=== PATIENT | female | born 1990 | race Two or more races ===

== ENCOUNTER → 2024-05-13 | Outpatient (CLI) | payer MEDICAID ==
[2024-05-13 10:14] LABS: Urine Bacteria None Seen /hpf (None Seen)
[2024-05-13 10:23] LABS: Basophils # (auto) 0 10 ^3/uL (0-0.2); Basophils % (auto) 0.3 % (0.0-2.0); Eosinophils # (auto) 0.2 10 ^3/uL (0-0.8); Eosinophils % (auto) 2.9 % (0.0-7.0); Hematocrit 37.2 % (36.0-46.0); Hemoglobin 13.1 g/dL (12.2-16.2); Lymphocytes # (auto) 1.6 10 ^3/uL (0.4-5.4); Mean Corpuscular Hemoglobin 31.8 pg (28.0-32.0); Mean Corpuscular Hgb Conc. 35.2 g/dL (32.0-36.0); Mean Corpuscular Volume 90.3 fL (80.0-100.0); Monocytes # (auto) 0.4 10 ^3/uL (0-1.3); Monocytes % (auto) 6.3 % (0.0-12.0); Neutrophils # (auto) 4.8 10 ^3/uL (1.6-8.6); Neutrophils % (auto) 67.5 % (37.0-80.0); Nucleated Red Blood Cells % 0.1 %; Platelet Count (auto) 314 10^3/uL (140-450); Red Blood Cells 4.12 10^6/uL (4.0-5.20); Red Cell Distribution Width 13.3 % (11.8-14.3); White Blood Cell 7.1 10^3/uL (4.4-10.8)
[2024-05-13 10:36] LABS: Urine Blood Negative /uL (Negative); Urine Clarity Clear (Clear); Urine Color Light-Yellow (Yellow); Urine Protein, UAD Negative (Negative); Urine Specific Gravity 1.015 (1.001-1.035); Urine Urobilinogen Normal (Negative); Urine WBC 2 /hpf (0 - 5)
[2024-05-13 11:12] LABS: Alanine Aminotransferase 27 U/L (7-40); Albumin 4.5 g/dL (3.2-4.8); Alkaline Phosphatase 80 U/L (46-116); Anion Gap 5 (5-15); Aspartate Aminotransferase 16 U/L (13-40); Calcium 9.7 mg/dL (8.7-10.4); Carbon Dioxide 26 mmol/L (20-31); Chloride 106 mmol/L (98-107); Cholesterol 188 mg/dL (< 200); Glucose 98 mg/dL (74-106); Potassium 4.5 mmol/L (3.5-5.1); Sodium 137 mmol/L (136-145)
[2024-05-13 11:13] LABS: Bilirubin, Total 0.4 mg/dL (0.2-1.0); Total Protein 7.7 g/dL (5.7-8.2)
[2024-05-13 11:23] LABS: Blood Urea Nitrogen 6 mg/dL (9-23); HDL Cholesterol 33 mg/dL (40-59); Triglycerides 532 mg/dL (< 150)
== END | disposition home or self-care (01) ==
LOC: LAB 09:59
PROVIDERS: ATTEND Nurse Practitioner Family
DX: Z00.01 Encounter for general adult medical examination with abnormal findings (principal); E78.5 Hyperlipidemia, unspecified; E55.9 Vitamin D deficiency, unspecified; R73.9 Hyperglycemia, unspecified
CPT/HCPCS: 36415; 80053; 80061; 81001; 82043; 82306; 83036; 84443; 85025

== ENCOUNTER → 2024-08-04 | Outpatient (CLI) | payer MEDICAID ==
[2024-08-04 10:07] LABS: Cholesterol 173 mg/dL (< 200)
[2024-08-04 10:28] LABS: HDL Cholesterol 29 mg/dL (40-59); Triglycerides 455 mg/dL (< 150)
== END | disposition home or self-care (01) ==
LOC: LAB 09:23
PROVIDERS: ATTEND Nurse Practitioner Family
DX: E78.5 Hyperlipidemia, unspecified (principal); R79.89 Other specified abnormal findings of blood chemistry
CPT/HCPCS: 36415; 80061; 82306

== ENCOUNTER 2024-10-06 08:10 | Day surgery (SDC) | payer MEDICAID ==
[2024-10-04 09:27] LABS: Basophils # (auto) 0 10 ^3/uL (0-0.2); Basophils % (auto) 0.2 % (0.0-2.0); Eosinophils # (auto) 0.2 10 ^3/uL (0-0.8); Eosinophils % (auto) 2.4 % (0.0-7.0); Hematocrit 36.3 % (36.0-46.0); Hemoglobin 12.5 g/dL (12.2-16.2); Lymphocytes # (auto) 1.5 10 ^3/uL (0.4-5.4); Lymphocytes % (auto) 22.1 % (10.0-50.0); Mean Corpuscular Hemoglobin 31.1 pg (28.0-32.0); Mean Corpuscular Hgb Conc. 34.6 g/dL (32.0-36.0); Mean Corpuscular Volume 90.1 fL (80.0-100.0); Monocytes # (auto) 0.5 10 ^3/uL (0-1.3); Monocytes % (auto) 6.7 % (0.0-12.0); Neutrophils # (auto) 4.8 10 ^3/uL (1.6-8.6); Neutrophils % (auto) 68.6 % (37.0-80.0); Nucleated Red Blood Cells % 0.2 %; Platelet Count (auto) 312 10^3/uL (140-450); Red Blood Cells 4.03 10^6/uL (4.0-5.20); Red Cell Distribution Width 13.8 % (11.8-14.3)
[2024-10-04 09:31] LABS: INR 0.97 (0.9-1.15); Partial Thromboplastin Time 25.4 SEC (24.5-34.5); Prothrombin Time 10.3 sec (9.3-11.8)
[2024-10-04 09:37] LABS: Alanine Aminotransferase 30 U/L (7-40); Albumin 4.7 g/dL (3.2-4.8); Alkaline Phosphatase 64 U/L (46-116); Anion Gap 8 (5-15); Aspartate Aminotransferase 23 U/L (13-40); BUN/Creatinine Ratio 16.4 (10.0-20.0); Bilirubin, Total 0.3 mg/dL (0.2-1.0); Blood Urea Nitrogen 11 mg/dL (9-23); Calcium 9.7 mg/dL (8.7-10.4); Carbon Dioxide 27 mmol/L (20-31); Chloride 106 mmol/L (98-107); Glucose 115 mg/dL (74-106); Potassium 3.8 mmol/L (3.5-5.1); Sodium 141 mmol/L (136-145)
[2024-10-04 10:06] LABS: Urine Bacteria FEW /hpf (None Seen); Urine Blood TRACE /uL (Negative); Urine Clarity Clear (Clear); Urine Color Light-Yellow (Yellow); Urine Mucus FEW (None Seen); Urine Protein, UAD Negative (Negative); Urine Specific Gravity 1.023 (1.001-1.035); Urine Squamous Epithelial Cell FEW /hpf (<5); Urine Urobilinogen Normal (Negative); Urine WBC 1 /HPF (0-5); Urine pH 5.5 (5.0-9.0)
[~2024-10-06] VITALS: Ht 154.9 cm; Wt 68.5 kg
[~2024-10-06 08:10] MED LIST: ATOR-507 PO; EZET10TA22 PO
[2024-10-06] MEDS ORDERED: ceFAZolin 2 GM/D5W50ml 50 ML IV ONE (08:29)
[2024-10-06] MEDS ORDERED: fentaNYL CITRATE 100 MCG/2 ML VL ONE (09:07)
[2024-10-06] MEDS ORDERED: MIDAZOLAM HCL 2MG/2ML 2ml VIAL (1mg/ml) ONE (09:07)
[2024-10-06] MEDS ORDERED: HYDROmorphone HCL 2 MG/ML VL/or syr ONE (09:07)
[2024-10-06] MEDS ORDERED: KETOROLAC TROMETH 30 MG/ML 1ML VIAL ONE (09:08)
[2024-10-06] MEDS ORDERED: ONDANSETRON HCL 4 MG/2 ML VIAL ONE (09:08)
[2024-10-06] MEDS ORDERED: GLYCOPYRROLATE 0.2 MG/ML 1ML VIAL ONE (09:08)
[2024-10-06] MEDS ORDERED: DexAMETHasone SOD PHOS 10MG/1ML VIAL INJ ONE (09:08)
[2024-10-06] MEDS ORDERED: LIDOCAINE 2% (LOCAL ANESTH.) PF 5ml SDV ONE (09:08)
[2024-10-06] MEDS ORDERED: ROCURONIUM 10MG/ML 10ML VIAL IV ONE (09:08)
[2024-10-06] MEDS ORDERED: PROPOFOL 10 MG/ML 20 ML IV ONE (09:08)
[2024-10-06] MEDS ORDERED: SUGAMMADEX 200mg/2ml Vial (100MG/ML) IV ONE (09:49)
[2024-10-06] MEDS: POVIDONE IODINE 10 % TOPICAL OINT 30GM TOP ONE (09:50)
[2024-10-06] MEDS: Lidocaine/Epinephrine 1%-1:100,000 30ML VL IJ ONE (09:50)
[2024-10-06 10:19] VITALS: TEMP 97.6; O2SAT 100
[2024-10-06] MEDS ORDERED: HYDROmorphone HCL 2 MG/ML VL/or syr IV PRN (10:30)
[2024-10-06] MEDS: ONDANSETRON HCL 4 MG/2 ML VIAL IV ONE (11:10)
--- NOTE | 2024-10-06 11:26 | DVHOP ---
DATE OF SURGERY: 10/06/2024 PREOPERATIVE DIAGNOSIS: Umbilical incisional hernia. POSTOPERATIVE DIAGNOSIS: Umbilical incisional hernia. SURGEON: Rodríguez Faith MD ANESTHESIA: General endotracheal. ANESTHESIOLOGIST: Dr. Siddiqui. PROCEDURE: Repair of umbilical hernia. DESCRIPTION OF PROCEDURE: Under general endotracheal anesthesia, with the patient's skin prepped and draped, the patient's skin was infiltrated with 0.5% Xylocaine and 0.25% Marcaine with epinephrine. An incision was made in the umbilical area and a circumferential area. The incision was deepened with electrocautery. Periumbilical area in a semicircular fashion. The incision was deepened with electrocautery. There was a very large amount of omentum trapped in the defect. This was mobilized and reduced. Hemostasis was accomplished. The sac of the hernia was excised. The fascial edges were widely and retracted. It was necessary to mobilize the fascia in order to approximate it and the tissues were held with Jesika clamps. The finger under swept the internal surface of the fascia and the adherent bowel and omentum from the fascia. A #1 double-stranded Prolene suture was then utilized to suture the edges in a horizontal fashion creating a crescent of the tissues so as to be able to reinforce the suture line with 0 nonabsorbable sutures. The wound was then irrigated. Hemostasis was accomplished. Approximation accomplished using 2-0 Monocryl sutures and metallic skin faith. The patient remained stable throughout the procedure, left the operating room following an accurate needle and sponge count. MD [id number] Prasad/NADER TID: [id number] RECEIPT: [id number]
[2024-10-06 11:27] VITALS: BP 141/64; PULSE 70; RESP 14; O2SAT 100
== END 2024-10-06 11:35 | disposition home or self-care (01) ==
LOC: SUR 08:10
PROVIDERS: ATTEND Surgery
DX: K42.9 Umbilical hernia without obstruction or gangrene (principal); E78.00 Pure hypercholesterolemia, unspecified; Z79.899 Other long term (current) drug therapy; Z90.49 Acquired absence of other specified parts of digestive tract
CPT/HCPCS: 36415; 49593; 80053; 81001; 84702; 85025; 85610; 85730; 86850; 86900; 86901; 88302; J0690; J1100; J1171; J1885; J2003; J2250; J2405; J2704; J3010